=== PATIENT | male | born 1960 | race Caucasian/White ===

== ENCOUNTER → 2024-02-26 | Outpatient (CLI) | payer BC ==
[~2024-02-26] MED LIST: Iohexol 300 - 10 ML VIAL IV ONE; Triamcinolone 40 MG/ML 1 ML VIAL IJ ONE
== END ==
LOC: COL.RAD 12:36
DX: M25.571 Pain in right ankle and joints of right foot (principal)
CPT/HCPCS: J0665; J3301; Q9967